=== PATIENT | female | born 1995 | race Caucasian/White ===

== ENCOUNTER 2017-08-23 19:28 | Inpatient (IN) ==
[2017-08-23 21:21] LABS: Hematocrit 36.5 VOL% (35.7-47.0); Hemoglobin 12.7 GM/DL (12.0-16.0); Mean Corpuscular HGB Conc 34.8 GM/DL (32-36); Mean Corpuscular Hemoglobin 32 PG (27-34); Mean Corpuscular Volume 93.1 FL (87-102); Mean Platelet Volume 11.4 FL (9.6-12.0); Neutrophils % 68.7 % (38.7-73.9); Platelet Count 206 T/CUMM (130-400); Red Blood Count 3.92 MC/CUMM (3.8-5.5); Red Cell Distribution Width 13.7 % (9.3-17.3); White Blood Count 12.5 T/CUMM (4-12)
[2017-08-23 21:22] LABS: Basophils # 0.1 10*3/uL (0.0-0.2); Basophils % 0.4 % (0.0-0.8); Eosinophils # 0.1 10*3/uL (0.0-0.87); Eosinophils % 0.6 % (0.00-10.9); Immature Granulocytes % 1.4 %; Immature Granulocytes Absolute 0.18 #; Lymphocytes # 2.6 10*3/uL (1.4-4.0); Monocytes % 7.9 % (1.7-12.7); Neutrophils # 8.6 10*3/uL (1.4-7.4)
[2017-08-23 21:54] LABS: Albumin 3.1 G/DL (3.4-5.0); Bilirubin,Total 0.4 MG/DL (0.2-1.0); Calcium 9.4 MG/DL (8.5-10.1); Osmolality,Calculated 277.3 MOS/KG (273-304); Potassium 3.6 MMOL/L (3.5-5.1); Total Protein 7.2 G/DL (6.4-8.3)
[2017-08-23] MEDS: ONDANSETRON 4 MG/2 ML VIAL IV PRN (23:40)
[2017-08-23] MEDS: BUTORPHANOL 2 MG/ML VIAL IV PRN (23:40)
[2017-08-24] MEDS: BUTORPHANOL 2 MG/ML VIAL IV PRN ×5 (02:20→23:34)
[2017-08-24] MEDS: ONDANSETRON 4 MG/2 ML VIAL IV PRN ×3 (05:50→20:35)
[2017-08-24] MEDS: LACTATED RINGERS 1,000 ML IV SCH (14:14)
[2017-08-24] MEDS ORDERED: ZALEPLON 5 MG CAPSULE PO SCH (21:00)
[2017-08-25] MEDS ORDERED: OXYTOCIN/LR 20 UNIT/1,000 ML BAG IV SCH (05:00)
[2017-08-25] MEDS: LACTATED RINGERS 1,000 ML IV SCH ×2 (09:04→16:52)
[2017-08-25] MEDS: ONDANSETRON 4 MG/2 ML VIAL IV PRN ×2 (09:50→17:14)
[2017-08-25] MEDS: MEPERIDINE 50 MG/1 ML VIAL IV PRN (09:53)
[2017-08-25] MEDS: BUTORPHANOL 2 MG/ML VIAL IV PRN (10:01)
[2017-08-25] MEDS ORDERED: FAMOTIDINE 20 MG/2 ML VIAL IV ONE (15:36)
[2017-08-25] MEDS ORDERED: ceFAZolin 2,000 MG in PREMIX 1 EACH IV ONE (15:36)
[2017-08-25] MEDS ORDERED: CITRIC ACID/SODIUM CITRATE 30 ML UDCUP PO ONE (15:36)
[2017-08-25] MEDS ORDERED: ACETAMINOPHEN 325 MG TABLET PO PRN (18:11)
[2017-08-25] MEDS ORDERED: ONDANSETRON 4 MG/2 ML VIAL IV PRN (18:11)
[2017-08-25] MEDS ORDERED: OXYTOCIN/LR 20 UNIT/1,000 ML BAG IV ONE (18:11)
[2017-08-25] MEDS ORDERED: RHO(D) IMMUNE GLOBULIN 300 MCG SYRINGE IM ONE (18:11)
[2017-08-25] MEDS ORDERED: METHYLERGONOVINE 0.2 MG/1 ML AMP ONE (18:28)
[2017-08-25] MEDS ORDERED: LACTATED RINGERS 1,000 ML IV SCH (18:30)
[2017-08-25] MEDS ORDERED: CARBOPROST TROMETHAMINE 250 MCG/ML AMP IM ONE (18:32)
[2017-08-25 19:10] LABS: Apearance,Urine CLEAR (Clear); Bilirubin,Urine Negative (Negative); Blood, Urine Negative (Negative); Glucose,Urine (UA) Negative (Negative); Ketones,Urine 80 mg/dL (Negative); Nitrite,Urine Negative (Negative); Protein,Urine Negative; RBC,Urine 3 /HPF (0-4); Squamous Epithelial Cell,Urine Occasional /HPF (0-10); Urine Color Yellow (Yellow); Urine Specific Gravity 1.008 (1.001-1.035); Urine Urobilinogen < 2.0 EU/DL (0.2-1.0); WBC,Urine 2 /HPF (0-6)
[2017-08-25] MEDS: DOCUSATE SODIUM 100 MG CAPSULE PO SCH (22:57)
[2017-08-26] MEDS: oxyCODONE/ACETAMINOPHEN 5-325 MG TABLET PO PRN ×3 (00:59→16:11)
[2017-08-26] MEDS: IBUPROFEN 800 MG TABLET PO PRN ×2 (01:00→16:14)
[2017-08-26] MEDS: ceFAZolin 1,000 MG in SYRINGE 1 EACH IV SCH ×2 (01:04→08:39)
[2017-08-26] MEDS: SIMETHICONE CHEW 80 MG TABLET PO PRN ×3 (01:12→21:53)
[2017-08-26] MEDS: ONDANSETRON 4 MG/2 ML VIAL IV PRN (01:19)
[2017-08-26] MEDS: MEPERIDINE 50 MG/1 ML VIAL IV PRN (01:28)
[2017-08-26 05:27] LABS: Basophils # 0.1 10*3/uL (0.0-0.2); Basophils % 0.3 % (0.0-0.8); Hematocrit 27.2 VOL% (35.7-47.0); Hemoglobin 9.3 GM/DL (12.0-16.0); Immature Granulocytes % 0.7 %; Immature Granulocytes Absolute 0.11 #; Lymphocytes # 1.3 10*3/uL (1.4-4.0); Lymphocytes % 7.5 % (21.3-54.2); Mean Corpuscular HGB Conc 34.2 GM/DL (32-36); Mean Corpuscular Hemoglobin 32 PG (27-34); Mean Corpuscular Volume 94.8 FL (87-102); Mean Platelet Volume 11.3 FL (9.6-12.0); Monocytes % 6.1 % (1.7-12.7); Neutrophils # 14.2 10*3/uL (1.4-7.4); Neutrophils % 85.4 % (38.7-73.9); Platelet Count 175 T/CUMM (130-400); Red Blood Count 2.87 MC/CUMM (3.8-5.5); Red Cell Distribution Width 13.5 % (9.3-17.3); White Blood Count 16.6 T/CUMM (4-12)
[2017-08-26] MEDS: MULTIVITAMIN (PRENATAL) TABLET PO SCH (08:40)
[2017-08-26] MEDS: FERROUS SULFATE 325 MG TABLET PO SCH ×2 (08:40→21:53)
[2017-08-26] MEDS: DOCUSATE SODIUM 100 MG CAPSULE PO SCH ×2 (08:40→21:53)
[2017-08-26] MEDS ORDERED: fentaNYL 100 MCG/2 ML VIAL ONE (14:13)
[2017-08-26] MEDS ORDERED: MIDAZOLAM 2 MG/2 ML VIAL ONE (14:13)
[2017-08-26] MEDS ORDERED: ePHEDrine 50 MG/ML AMP ONE (14:14)
[2017-08-26] MEDS ORDERED: MORPHINE 10 MG/10 ML VIAL ONE (14:14)
[2017-08-26] MEDS: MAGNESIUM HYDROXIDE SUSP 30 ML UDCUP PO PRN (21:53)
[2017-08-27] MEDS: oxyCODONE/ACETAMINOPHEN 5-325 MG TABLET PO PRN ×3 (00:38→22:02)
[2017-08-27] MEDS: DOCUSATE SODIUM 100 MG CAPSULE PO SCH ×2 (08:44→21:58)
[2017-08-27] MEDS: FERROUS SULFATE 325 MG TABLET PO SCH ×2 (08:44→21:58)
[2017-08-27] MEDS: MULTIVITAMIN (PRENATAL) TABLET PO SCH (08:44)
[2017-08-27] MEDS: MAGNESIUM HYDROXIDE SUSP 30 ML UDCUP PO PRN ×2 (08:44→21:58)
[2017-08-27] MEDS: IBUPROFEN 800 MG TABLET PO PRN (10:14)
[2017-08-27] MEDS: SIMETHICONE CHEW 80 MG TABLET PO PRN (21:58)
[2017-08-28] MEDS: oxyCODONE/ACETAMINOPHEN 5-325 MG TABLET PO PRN ×2 (05:47→10:38)
[2017-08-28 08:25] VITALS: BP 112/75
[2017-08-28] MEDS: MULTIVITAMIN (PRENATAL) TABLET PO SCH (08:55)
[2017-08-28] MEDS: FERROUS SULFATE 325 MG TABLET PO SCH (08:55)
[2017-08-28] MEDS: DOCUSATE SODIUM 100 MG CAPSULE PO SCH (08:55)
[2017-08-28] MEDS ORDERED: ONDANSETRON 4 MG TABLET PO ONE (10:26)
[2017-08-28] MEDS ORDERED: DIPH/TET/ACEL PERT BOOSTER VACCINE 0.5 ML VIAL IM ONE (12:07)
== END 2017-08-28 14:00 | disposition home or self-care (01) | DRG 540 ==
LOC: N.LDOUT 19:28 → N.LD 19:32 → N.OB 08-25 21:34
PROVIDERS: ADMIT Obstetrics & Gynecology; ATTEND Obstetrics & Gynecology
PROC: LDCSECT (ICD-10-PCS; 2017-08-25 17:30)